=== PATIENT | male | born 1955 | race Caucasian/White ===

== ENCOUNTER 2017-02-19 16:23 | Observation (INO) | payer MEDICARE ==
[~2017-02-19] VITALS: Ht 180.3 cm; Wt 92.3 kg
[~2017-02-19 16:23] MED LIST: APRESOLINE25 MG PO; ASPIR 8181 MG PO; GLUCOPHAGE XR500 MG PO; GLUCOPHAGE1000 MG PO; HYDROCHLOROTHIA25 MG PO; LANTUS100 UNIT/1 INJECT; LANTUS100 UNIT/1 SUBCUT; LIPITOR80 MG PO; LOPRESSOR25 MG PO; NITROSTAT0.4 MG SL; PRINIVIL10 MG PO
[2017-02-19] MEDS ORDERED: TRULICITY0.75 MG/0. SUBCUT (17:56)
== END 2017-02-20 17:25 | disposition short-term general hospital (02) ==
LOC: ER 16:23 → IP 19:05 → OBS 19:05 → IP 19:05
PROVIDERS: ADMIT Family Medicine
DX: R10.9 Unspecified abdominal pain (principal); R11.2 Nausea with vomiting, unspecified; R19.7 Diarrhea, unspecified; E11.9 Type 2 diabetes mellitus without complications; I10 Essential (primary) hypertension; E78.5 Hyperlipidemia, unspecified; F17.200 Nicotine dependence, unspecified, uncomplicated; Z79.899 Other long term (current) drug therapy; Z90.49 Acquired absence of other specified parts of digestive tract; Z95.1 Presence of aortocoronary bypass graft
CPT/HCPCS: G0378; J1170; J1815; J1885; J2405; J8499